=== PATIENT | female | born 1950 | race Caucasian/White ===

== ENCOUNTER → 2020-09-07 | Outpatient (CLI) | payer MEDICARE, OTHER ==
[~2020-09-07] MED LIST: ASPI81CH PT; ATOR80 PT; Bisac-Evac10 MG RC; Catapres-Tts 21 EACH TD; Docu Liqui50 MG/5 ML PT; FORTAZ IV; MILK OF MAG PT; OMEP20ER PT
== END | disposition home or self-care (01) ==
LOC: LAB SHORT 07:43
DX: D18.01 Hemangioma of skin and subcutaneous tissue (principal); L98.9 Disorder of the skin and subcutaneous tissue, unspecified
CPT/HCPCS: 88305